=== PATIENT | male | born 1930 | race Caucasian/White ===

== ENCOUNTER 2016-09-03 18:29 | Inpatient (IN) | payer MEDICARE, OTHER ==
[~2016-09-03] VITALS: Ht 182.9 cm; Wt 77.5 kg
[2016-09-03 20:17] LABS: BASOPHILS 0.1 % (0.0-2.0); EOSINOPHILS 0 % (0-7); HEMATOCRIT 41.1 % (42.0-54.0); HEMOGLOBIN 13.7 g/dL (13.5-17.5); IMMATURE GRANULOCYTES 0.2 % (0-5); LYMPHOCYTES 7.8 % (15-50); MCH 32.2 pg (26.0-34.0); MCHC 33.3 g/dL (31.0-37.0); MCV 96.7 fL (80.0-100.0); MEAN PLATELET VOLUME 11.6 fL (7.4-10.4); MONOCYTES 3.6 % (2-11); NEUTROPHILS 88.3 % (40-80); PLATELET COUNT 121 10x3/uL (130-400); RBC 4.25 10x6/uL (4.20-6.10); RDW 13.6 % (11.5-14.5); WBC 8.7 10x3/uL (4.8-10.8)
[2016-09-03 20:26] LABS: APPEARANCE CLEAR (CLEAR); BILIRUBIN NEGATIVE (NEGATIVE); COLOR YELLOW (YELLOW); GLUCOSE NEGATIVE (NEGATIVE); KETONE SMALL mg/dL (NEGATIVE); LEUKOCYTE ESTERASE NEGATIVE (NEGATIVE); NITRITE NEGATIVE (NEGATIVE); PROTEIN NEGATIVE (NEGATIVE); SPECIFIC GRAVITY 1.015 (1.005-1.020); UROBILINOGEN NORMAL (NORMAL)
[2016-09-03 20:28] LABS: ALKALINE PHOSPHATASE 72 U/L (46-116); ALT (SGPT) 25 U/L (10-68); AMYLASE - SERUM 32 U/L (25-115); CALC OSMOLALITY 283 mosm/kg (275-300); CALCIUM 8.7 mg/dL (8.5-10.1); CARBON DIOXIDE 27.7 mmol/L (21.0-32.0); CHLORIDE - SERUM 104 mmol/L (98-107); CREATININE - SERUM 0.9 mg/dL (0.6-1.3); GLUCOSE 145 mg/dL (74-106); LIPASE 68 U/L (73-393); POTASSIUM - SERUM 4.2 mmol/L (3.5-5.1); SODIUM 141 mmol/L (136-145); UREA NITROGEN 12 mg/dL (7-18); eGFR NON AFRICAN AMERICAN 84 mL/min (90-120)
[2016-09-04] VITALS (21 sets, daily range): BP systolic 116–155; BP diastolic 71–93; Ht 182.9 cm; Wt 77.5 kg
--- NOTE | 2016-09-04 01:00 | NUR ---
0100: Pt arrived via WC from ER. Pt gait is steady. Pt transferred to bed in room 2305 and all ICU monitors and alarms established at this time.
--- NOTE | 2016-09-04 01:15 | NUR ---
0115: Pt HOB 30 degrees with eyes open; pupils BK+ bilat. LOCx4 alert and oriented. 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 Moves x4 extrem vs gravity w/o difficulty. Denies tingling or numbness. Breathing RA RR16x with SPO2 97%. Lungs clear bilat with auscultation; MMP; No cyanosis. S1S2 Aflutter 3:1 seen on CM. PPPx4=bilat. ABD soft NT BSx4 active. Pt denies difficulty with elimination. Pt states he has been unable to swallow today and has had some nausea including one episode of severe nausea. SR up x3, call light in reach, brought to bedside and updated as well.
[2016-09-04] MEDS ORDERED: XALATAN 0.0052.5 ML EACH EYE (02:55)
--- NOTE | 2016-09-04 03:00 | NUR ---
0300: Pt resting with eyes closed at this time without c/o. No N+V. Pt remains Aflutter 60's on CM. No bleeding seen.
--- NOTE | 2016-09-04 06:00 | NUR ---
0600: in and update provided. Pt resting with eyes closed at this time. No N+V at this time. Pt remains Aflutter 56 bpm with SBP 120's.
[2016-09-04 06:58] LABS: BASOPHILS 0.1 % (0.0-2.0); EOSINOPHILS 0 % (0-7); HEMATOCRIT 37.8 % (42.0-54.0); HEMOGLOBIN 12.4 g/dL (13.5-17.5); IMMATURE GRANULOCYTES 0.1 % (0-5); MCH 31.9 pg (26.0-34.0); MCHC 32.8 g/dL (31.0-37.0); MCV 97.2 fL (80.0-100.0); MEAN PLATELET VOLUME 11.1 fL (7.4-10.4); MONOCYTES 10.8 % (2-11); PLATELET COUNT 105 10x3/uL (130-400); RBC 3.89 10x6/uL (4.20-6.10); RDW 13.6 % (11.5-14.5); WBC 7.5 10x3/uL (4.8-10.8)
[2016-09-04 07:14] LABS: ALBUMIN 3.4 g/dL (3.4-5.0); ALKALINE PHOSPHATASE 60 U/L (46-116); ALT (SGPT) 20 U/L (10-68); CALC OSMOLALITY 280 mosm/kg (275-300); CALCIUM 8.5 mg/dL (8.5-10.1); CARBON DIOXIDE 28.7 mmol/L (21.0-32.0); CHLORIDE - SERUM 106 mmol/L (98-107); CREATININE - SERUM 0.8 mg/dL (0.6-1.3); GLUCOSE 112 mg/dL (74-106); MAGNESIUM - SERUM 1.8 mg/dL (1.8-2.4); POTASSIUM - SERUM 4.3 mmol/L (3.5-5.1); SODIUM 141 mmol/L (136-145); UREA NITROGEN 11 mg/dL (7-18); eGFR NON AFRICAN AMERICAN > 90 mL/min (90-120)
[2016-09-04 07:16] LABS: TROPONIN-I 0.017 ng/mL (0.000-0.060)
--- NOTE | 2016-09-04 10:18 | NUR ---
0700 RECEIVED PT AWAKE ALERT ORIENTED LAYING IN BED EYES OPENED ABLE TO ANSWER ALL QUESTIONS APPROP. NPO AT THIS TIME, DENIES ANY N/V STATES HE FEELS MUCH BETTER. NEW ORDER TO START PROTONIX GTT. VSS ON ROOM AIR LUNGS CLEAR. HEART RATE IRREGULATULAR WITH HX OF FLUTTER. USES URINAL AND BSC AT BEDSIDE. NO COMPLAINTS 0800 WENT TO RADIOLOGY FOR UPPER GI SERIES, TRANSFERRED TO WITHOUT DIFFICULTY 0930 DR GRUBER IN TO ROUND A GAVE NEW ORDERS TO TRANSFER TO FLOOR 1000 DR GUERRIER AND EV IN UNIT AND BOTH AGREE [address] DR JARAMILLO PAGED AND CALLED BACK AND AWARE OF CONSULT WILL SEE PT WHEN HE GETS HERE
--- NOTE | 2016-09-04 12:34 | NUR ---
1200 REPORT CALLED TO [facility]. PT TRANSPORTED VIA TO 2224. TOLERATED WELL NO C/O NO DISTRESS
--- NOTE | 2016-09-04 13:00 | NUR ---
TO ROOM 2225 FROM ICU VIA WHEELCHAIR.PT WITHOUT DISTRESS.FAMILY AT BEDSIDE.ORIENTATION TO ROOM.CALL LIGHT IN REACH,USE INSTRUCTED.
--- NOTE | 2016-09-04 15:25 | NUR ---
SCRUB SHIRT PER PT REQUEST.FAMILY AT SIDE.DENIES NEEDS.CALL LIGHT IN REACH
--- NOTE | 2016-09-04 16:47 | HP ---
PATIENT: GRETTA FAIR MEDICAL RECORD: [id number] ACCOUNT: [id number] LOCATION:D.MS Sow2225 : [birth year] ADMISSION DATE: 09/03/16 HISTORY AND PHYSICAL EXAMINATION HISTORY OF PRESENT ILLNESS: Mr. Fair is a pleasant 86-year-old white male that presents to the Emergency Room with inability to swallow. He underwent an EGD with dilatation yesterday at Dr. Humphries's office. Afterwards he had difficulty swallowing got to the point where he could not handle his own secretions, came to the Emergency Room for evaluation. A CT was performed, which revealed a finding that are worrisome for a distal esophageal hematoma. There is no evidence of free air. He is subsequently admitted to the ICU for further evaluation. Case was discussed with Dr. Del Cid and Dr. Myers s, who is immigration law specialist for Dr. Humphries. PAST MEDICAL HISTORY: He denies really any significant medical issues in the past. He has had multiple surgeries on an upper ventral hernia that was apparently repaired by Dr. Cote with good results. ALLERGIES: None known. MEDICATIONS: His only meds are Glaucoma med and Xalatan. FAMILY HISTORY: Noncontributory. SOCIAL HISTORY: He is a retired [employer] worker. He lives in [place] with his . He does not smoke and drinks alcohol on a social basis. REVIEW OF SYSTEMS: No fever, no chest pain, troubles with his swallowing. No nausea or vomiting. No change in bladder or bowel habits. PHYSICAL EXAMINATION: HEAD: Normocephalic. NECK: Soft and supple. HEART: Regular. LUNGS: Clear. ABDOMEN: Soft, few bowel sounds are heard. EXTREMITIES: Lower extremities revealed no edema. NEUROLOGIC: Without any gross focal deficits, scar noted on midline abdomen. IMPRESSION: Dysphagia secondary to possible esophageal hematoma, cannot rule out esophageal tear. PLAN: Admit to ICU. Case has been discussed with Dr. Del Cid and Dr. Bradley per Dr. Arias. Monitor H&H, IV antibiotics. We will get an upper GI study ADDENDUM: Upper GI study reveals no extravasation of dye and contrast moved into the stomach ____. The patient is now able to handle his own secretions. Discussed with Dr. Lucia henderson since he starting to swallow, no EG unless condition changes. We will start clear liquids and monitor for now. TRANSINT:[id number] Voice Confirmation ID: [id number] DOCUMENT ID: [id number] HISTORY AND PHYSICAL [id number] GRETTA FAIR MATTHEW DO at 1647 CC: [id number] DICTATION DATE: 09/04/1634 GREENSKEEPER LABORER: 09/04/16 1050 ADM IN [place] [id number] [place] [address]
--- NOTE | 2016-09-04 17:29 | NUR ---
REMAINS WITHOUT NEEDS,WITHOUT DISTRESS.CONT PLAN OF CARE
[2016-09-05] VITALS: BP 131/72
--- NOTE | 2016-09-05 01:56 | NUR ---
PATIENT RESTING WITH EYES CLOSED. NO SIGNS OF DISTRESS. BED IN LOWEST POSITION AND CALL LIGHT WITHIN REACH.
[2016-09-05 04:00] VITALS: BP 123/71
[2016-09-05 06:54] LABS: BASOPHILS 0.4 % (0.0-2.0); HEMATOCRIT 35.5 % (42.0-54.0); HEMOGLOBIN 11.9 g/dL (13.5-17.5); IMMATURE GRANULOCYTES 0.2 % (0-5); LYMPHOCYTES 22.1 % (15-50); MCH 32.5 pg (26.0-34.0); MCHC 33.5 g/dL (31.0-37.0); MEAN PLATELET VOLUME 11.7 fL (7.4-10.4); MONOCYTES 12.4 % (2-11); NEUTROPHILS 60.9 % (40-80); PLATELET COUNT 103 10x3/uL (130-400); RBC 3.66 10x6/uL (4.20-6.10); RDW 13.5 % (11.5-14.5)
[2016-09-05 06:57] LABS: INR 1.3 (0.85-1.17)
[2016-09-05 07:01] LABS: CALC OSMOLALITY 281 mosm/kg (275-300); CALCIUM 8.2 mg/dL (8.5-10.1); CARBON DIOXIDE 26.6 mmol/L (21.0-32.0); CHLORIDE - SERUM 109 mmol/L (98-107); CREATININE - SERUM 0.8 mg/dL (0.6-1.3); GLUCOSE 89 mg/dL (74-106); SODIUM 142 mmol/L (136-145); UREA NITROGEN 12 mg/dL (7-18); eGFR NON AFRICAN AMERICAN > 90 mL/min (90-120)
[2016-09-05 07:02] LABS: POTASSIUM - SERUM 3.5 mmol/L (3.5-5.1)
[2016-09-05 08:07] VITALS: BP 143/90
--- NOTE | 2016-09-05 09:00 | NUR ---
ASSESSMENT PER FLOW SHEET.PT WITHOUT DISTRESS.CALL LIGHT IN REACH
--- NOTE | 2016-09-05 10:45 | NUR ---
TOLERATED FULL LIQUID DIET.REMAINS WITHOUT N/V.
--- NOTE | 2016-09-05 11:42 | CN ---
PATIENT NAME:GRETTA FAIR MEDICAL RECORD: [id number] : [birth year] LOCATION:D.MS Sow2225 ADMIT DATE: 09/03/16 ACCOUNT: [id number] CONSULTING PHYSICIAN: ANIKET GUERRIER MD REFERRING PHYSICIAN: CHELE GRUBER DO DATE OF CONSULTATION: 09/04/2016 REFERRING PHYSICIAN: Chele Gruber DO. HISTORY OF PRESENT ILLNESS: The patient is an 86-year-old white male with history of AFib/flutter, who basically was admitted to the Emergency Room with what looks like an esophageal hematoma. He underwent an EGD with dilatation by Dr. Humphries yesterday. I do not have the details of exactly what happened or what the findings were, but he had a stricture/ring and was dilated yesterday. He did fine after procedure and able to eat well. However, gradually, through the course of the rest of the day, he had progressive dysphagia even to clear liquids and by the time he presented to the ER, he could not even tolerate water. In the ER, a CT of the abdomen was done and revealed what looks like a probable hematoma in the distal esophagus. He was subsequently admitted for further evaluation. No perforation was seen. PAST MEDICAL HISTORY: As above. He also has BPH. PAST SURGICAL HISTORY: Remarkable for tonsillectomy, appendectomy, cataract surgery. He has had several hernia repairs as well as a partial small bowel resection and TURP. ALLERGIES: PENICILLIN. HOME MEDICATIONS: Includes ____. FAMILY HISTORY: Negative for GI disease. SOCIAL HISTORY: The patient is a nonsmoker, nondrinker. REVIEW OF SYSTEMS: Noncontributory. PHYSICAL EXAMINATION: GENERAL: Reveals a well-developed white male, in no acute distress. VITAL SIGNS: Stable, afebrile. CHEST: Clear. HEART: Regular rate and rhythm. ABDOMEN: Soft, nontender. EXTREMITIES: No edema. LABORATORY DATA: Reveals white count of 8000, hematocrit 37, platelet count 105. Electrolytes are normal, BUN 11, creatinine 0.8. Liver enzymes are normal. Amylase and lipase are normal. CT of the abdomen is as above. There was an ill-defined hyperdense fluid collection in the lower mediastinal interposed between the right atrium of the heart and the distal esophagus suggestive of a mediastinal hematoma. There was no pneumomediastinum or free intraperitoneal air. He also had a moderate-sized hiatal hernia. Upper GI this morning revealed no extravasation and ____ no mass effect on the distal esophagus from this mediastinal hematoma. CONSULT REPORT [id number] GRETTA FAIR IMPRESSION: Mediastinal hematoma caused by recent esophageal dilatation. No evidence of perforation. His hematocrit is stable. RECOMMENDATION: Conservative management and observation with clear liquid diet. Slowly advance diet as tolerated. Obviously, he does not need to be on any type of blood thinners, any aspirin or NSAIDs. He needs to be on a fairly high dose of PPI. TRANSINT:[id number] Voice Confirmation ID: [id number] DOCUMENT ID: [id number] ANIKET GUERRIER MD at 1142 CC: ELIA PHILLIP MD, CHELE GRUBER DO and ANGELITA CARRENO [id number] DICTATION DATE: 09/04/16 1024 CHANGE MANAGEMENT CONSULTANT: 09/04/16 1143 ADM IN [facility] [address] [place] [address]
[2016-09-05 12:03] VITALS: BP 135/79
[2016-09-05] MEDS ORDERED: OMEPRAZOLE20 M1 PO (12:37)
--- NOTE | 2016-09-05 14:26 | NUR ---
IV DCD CATH INTACT.DISCHARGE INSTRUCTIONS,STATES UNDERSTANDING.FAMILY AT BEDSIDE.
--- NOTE | 2016-09-06 18:09 | DS ---
PATIENT:GRETTA FAIR :[birth year] MEDICAL RECORD: [id number] DISCHARGE SUMMARY ADMISSION DATE: 09/03/16 DISCHARGE DATE: 09/05/16 DATE OF ADMISSION: 09/03/2016 DATE OF DISCHARGE: 09/03/2016 ADMITTING DIAGNOSES: 1. Dysphagia. 2. Atrial flutter/fibrillation, intermittent. DISCHARGE DIAGNOSES: 1. Esophageal hematoma. 2. Atrial flutter/fibrillation, intermittent. CONSULTING PHYSICIAN: Dr. Munoz and Dr. Del Cid. BRIEF HISTORY AND HOSPITAL COURSE: An 86-year-old white male, who underwent EGD on the morning of the for Dr. Humphries. After procedure, started developing dysphagia, finally could not handle his secretions, presents to the Emergency Room where a CT is performed, which reveals a possible hematoma. GI and thoracic surgery was consulted. He underwent a swallow eval, which showed no extravasation of dye material. It was felt these all represents a hematoma. His swallowing improved. He was started on clear liquids and advanced to full and is tolerating that well at this time, he is desiring to go home. We will discharge him home on some omeprazole 20 mg a day. He also has atrial flutter, which is chronic. He went in and out of this. He was seen in consultation by Dr. Alvarez. An echo was performed, which was stable. He is obviously not a candidate for anticoagulants at this time. We will follow up with Dr. Humphries in 2 weeks. TRANSINT:[id number] Voice Confirmation ID: [id number] DOCUMENT ID: [id number] CHELE GRUBER DO at 1809 CC: ANIKET HUMPHRIES MD [id number] DICTATION DATE: 09/05/16 1259 MONOMER RECOVERY SUPERVISOR: 09/05/16 2136 DIS IN 09/05/16 [facility] [address] [facility] [place] [address]
--- NOTE | 2016-09-10 08:46 | CN ---
PATIENT NAME:GRETTA FAIR MEDICAL RECORD: [id number] : [birth year] LOCATION:D.MS Sow2225 ADMIT DATE: 09/03/16 ACCOUNT: [id number] CONSULTING PHYSICIAN: JOVANNI JARAMILLO MD REFERRING PHYSICIAN: CHELE GRUBER DO DATE OF CONSULTATION: 09/04/2016 Cardiology Consultation DIAGNOSES: 1. Paroxysmal atrial flutter. 2. Hematoma after esophageal dilatation. HISTORY OF PRESENT ILLNESS: This is a gentleman with a past history of atrial flutter, not on any antiarrhythmic medications, is maintained in sinus rhythm. He is now in with a hematoma after esophageal dilatation, found to be in atrial flutter. His heart rate is controlled in the 70s. He is asymptomatic with the atrial flutter. He is actually going in and out of sinus rhythm and atrial flutter now. PHYSICAL EXAMINATION: GENERAL APPEARANCE: Well-nourished, well-developed, appears stated age. Level of distress, comfortable. PSYCHIATRIC: Mental status, alert, normal affect. Orientation, oriented to time, place and person. EYES: Lids and conjunctiva, noninjected. No discharge, no pallor. ENT: Lips, teeth, gums, normal dentition. Oropharynx, no cyanosis, no pallor. NECK: Carotid arteries, bilateral normal upstroke, no bruits, no thrills. JUGULAR VEINS: No jugular venous pressure or distention. CERVICAL LYMPH NODES: Nontender, nonenlarged. THYROID: Not enlarged. Nontender. No nodules. LUNGS: Respiratory effort, unlabored. CHEST: Normal curvature. No thoracic deformity. No chest wall tenderness. Percussion, resonant. Auscultation, clear. No wheezes, no rales, no rhonchi. CARDIOVASCULAR: Precordial exam, nondisplaced. No heaves or pericardial thrills. Rate and rhythm, regular. Heart sounds, normal S1, normal S2. No S3, no gallop, no rub. Systolic murmur, not heard. Diastolic murmur, not heard. EXTREMITIES: No cyanosis, no edema. Peripheral pulses, full and equal in all extremities, except as noted. No bruits appreciated. ABDOMEN: Soft, nondistended. Normal aorta. No bruit. Nontender. No masses. Liver, nontender, no hepatomegaly. Spleen, nontender, no splenomegaly. MUSCULOSKELETAL: No joint tenderness. No joint swelling. No erythema. NEUROLOGICAL: Normal gait, normal strength, normal tone. SKIN: Warm and dry. REVIEW OF SYSTEMS: The patient reports easy bruising but reports no swollen glands. The patient reports no fever, no night sweats, no significant weight gain, no significant weight loss. No significant exercise tolerance. The patient reports no dry eyes, no irritation, no vision change. Patient reports no difficulty hearing and no ear pain. Patient reports no frequent nose bleeds or nose and sinus problems. Patient reports on arm pain on exertion. No shortness of breath while lying down. No history of heart murmur. Patient reports no cough, no wheezing or coughing up blood. Patient reports no abdominal pain, no vomiting. Normal appetite. No diarrhea and not vomiting blood. No nausea and no constipation. Patient reports no incontinence. No CONSULT REPORT [id number] MARV,GRETTA difficulty urinating. No hematuria. No increased frequency. Patient reports no muscle aches. No weakness, no arthralgias, no back pain. No swelling of the extremities. Patient reports no abnormal mole, no jaundice, no rashes. Reports no loss of consciousness. No weakness and no numbness. No seizures, dizziness, or headaches. The patient reports no depression, no sleep disturbance, feeling safe in a relationship and no alcohol abuse. Patient reports on fatigue. Reports no runny nose or sinus pressure. No itching, no hives, and no frequent sneezing. OVERALL IMPRESSION: Paroxysmal atrial flutter. He is maintain in sinus rhythm without any antiarrhythmics for years. He prefers not to be on antiarrhythmics. We will see him back in 2 weeks after this hospitalization. If he is still in atrial flutter at that time, we will consider antiarrhythmic therapy. He is not a candidate for anticoagulation secondary to the hematoma after the esophageal dilatation. Only possible pharmacologic therapy to maintain sinus rhythm. TRANSINT:[id number] Voice Confirmation ID: [id number] DOCUMENT ID: [id number] JOVANNI JARAMILLO MD at 0846 CC: [id number] DICTATION DATE: 09/04/16 1048 DESK MANAGER: 09/04/16 1206 DIS IN 09/05/16 [place] [address]
--- NOTE | 2016-09-10 08:47 | EC ---
PATIENT:GRETTA FAIR DATE OF SERVICE: 09/03/16 SEX: M MEDICAL RECORD: [id number] DATE OF : [birth year] LOCATION:D.MS Sow222 AGE OF PATIENT: 86 ADMISSION DATE: 09/03/16 REFERRING PHYSICIAN: INTERPRETING PHYSICIAN: JOVANNI ALVAREZ MD ECHOCARDIOGRAM REPORT ECHO CHARGES 4 ECHO COMPLETE CLINICAL DIAGNOSIS: AFTRAIL FLUTTER ECHOCARDIOGRAPHIC MEASUREMENTS (adult normal given) AC root (d.<3.7cm) 3.7 LV Septum d (<1.2 cm> 1.3 Valve Excursion 1.7 LV Septum (systole) 1.4 Left Atria (s.<4.0cm> 4.6 LVPW d(<1.2cm) 1.3 RV (d.<2.3cm) 4.7 LVPW (sytole) 1.6 LV diastole(<5.6CM) 5.2 MV E-F(>70mm/sec) LV systole 3.5 LVOT Diameter 1.7 MV exc.(>10mm) 2.6 Est.ejection fraction (50-75%) Pericardial Effusion N DOPPLER: LVIT A 45.0 E 97.0 LA RVSP 46 LVOT 102 AOP1/2T Asc. Ao 103 RVOT RA PA AV Gradient Peak 4.20 AV Mean 2.43 AV Area 2.0 MV Gradient Peak 5.52 MV Mean 1.7 MV Area COMMENTS: Human Capital Manager: Jose Raul ARAGON Bird Cage Assembler:Margaret Alvarez TAPE# PACS DATE OF SERVICE: 09/04/2016 Echocardiogram FINDINGS: 1. Left ventricle chamber size is within normal limits. Left ventricular systolic function is normal. Overall ejection fraction estimated at 55%. 2. Left atrium, right atrium, and right ventricular chamber sizes are moderately dilated. Left atrium measures 4.6 cm. 3. Valvular structures have normal structure and motion. ECHOCARDIOGRAM REPORT [id number] GRETTA FAIR 4. Doppler interrogation reveals moderate mitral regurgitation, moderate tricuspid regurgitation. No other valvular insufficiency or stenosis. Pulmonary systolic pressure is mildly elevated estimated 46 mmHg. 5. No evidence of pericardial effusion or left ventricular thrombus. TRANSINT:[id number] Voice Confirmation ID: [id number] DOCUMENT ID: [id number] JOVANNI ALVAREZ MD at 0847 CC: [id number] DICTATION DATE: 09/05/16 1029 JIG OPERATOR: 09/05/161915 DIS IN 09/05/16 [facility] [address] [id number]
== END 2016-09-05 14:32 | disposition home or self-care (01) | DRG 920 ==
LOC: D.ER 18:29 → D.ICU 23:39 → D.MS 09-04 12:11
PROVIDERS: Emergency Medicine; Surgery; ADMIT Family Medicine
DX: K91.870 Postprocedural hematoma of a digestive system organ or structure following a digestive system procedure (principal); I48.92 Unspecified atrial flutter; Y83.9 Surgical procedure, unspecified as the cause of abnormal reaction of the patient, or of later complication, without mention of misadventure at the time of the procedure; I48.2 Chronic atrial fibrillation; K44.9 Diaphragmatic hernia without obstruction or gangrene; I08.1 Rheumatic disorders of both mitral and tricuspid valves